=== PATIENT | male | born 1930 | race Caucasian/White ===

== ENCOUNTER 2017-06-10 10:36 | Emergency (ER) | payer MEDICARE, BC ==
[2017-06-10 10:50] VITALS: RESP 20
[2017-06-10 11:02] LABS: BASOPHILS % (AUTO) 1 % (0-3); EOSINOPHILS % (AUTO) 1 % (0-9); HEMATOCRIT 42 % (39-53); MEAN CORPUSCULAR HGB CONC 35.4 gm/dl (32.0-36.0); MEAN CORPUSCULAR VOLUME 92 fL (80-100); MONOCYTES % (AUTO) 15.8 % (0-12); NEUTROPHILS % (AUTO) 69.3 % (37-80)
[2017-06-10 11:15] LABS: CALCIUM 8.5 mg/dl (8.5-10.1); POTASSIUM 4.1 mMol/L (3.5-5.1)
[2017-06-10 11:29] LABS: ALBUMIN 3.5 gm/dl (3.4-5.0); BILIRUBIN,DIRECT 0.3 mg/dl (0.0-0.2)
[2017-06-10] MEDS ORDERED: SODIUM CHLORIDE 0.9% 1000ML 1,000 ML IV ONE (11:29)
[2017-06-10 13:25] VITALS: TEMP 97.6; O2SAT 94
[2017-06-10 13:30] LABS: APPEARANCE,URINE Clear; BILIRUBIN,URINE NEGATIVE (NEGATIVE); COLOR,URINE Yellow; GLUCOSE, URINE (UA) 2+ (NEGATIVE); KETONES,URINE NEGATIVE (NEGATIVE); LEUKOCYTE ESTERASE ,URINE NEGATIVE (NEGATIVE); NITRATE,URINE NEGATIVE (NEGATIVE); OCCULT BLOOD,URINE 2+ (NEG-TRACE); UROBILINOGEN,URINE 0.2 (0.2-1.0 EU)
[2017-06-10] MEDS ORDERED: INSULIN HUMAN REGULAR 100 U/ML SOL SUBCUT SCH (13:45)
[2017-06-10 13:47] LABS: RBC,URINE 0-2 (0-3AV/HPF); WBC,URINE 0-2 (0-5AV/HPF)
[2017-06-10 14:44] VITALS: BP 145/85; PULSE 90
== END 2017-06-10 14:27 | disposition home or self-care (01) | DRG 305 ==
LOC: ED 10:36
DX: I16.9 Hypertensive crisis, unspecified (principal); E11.42 Type 2 diabetes mellitus with diabetic polyneuropathy; E11.65 Type 2 diabetes mellitus with hyperglycemia; J11.1 Influenza due to unidentified influenza virus with other respiratory manifestations; I48.0 Paroxysmal atrial fibrillation; Z79.4 Long term (current) use of insulin; W19.XXXA Unspecified fall, initial encounter; R79.89 Other specified abnormal findings of blood chemistry; I25.2 Old myocardial infarction; N18.9 Chronic kidney disease, unspecified; R50.9 Fever, unspecified; R40.2362 Coma scale, best motor response, obeys commands, at arrival to emergency department; R40.2252 Coma scale, best verbal response, oriented, at arrival to emergency department
CPT/HCPCS: 70450; 70551; 71010; 80048; 80076; 81001; 82550; 82962; 84484; 85025; 87804; 93005; 99285; 99291; J1815; J1817

== ENCOUNTER 2017-06-10 21:45 | Emergency (ER) | payer MEDICARE, BC ==
[2017-06-10 22:13] LABS: BASOPHILS % (AUTO) 1 % (0-3); EOSINOPHILS % (AUTO) 0 % (0-9); HEMATOCRIT 41 % (39-53); MEAN CORPUSCULAR HGB CONC 34.9 gm/dl (32.0-36.0); MEAN CORPUSCULAR VOLUME 92 fL (80-100); MONOCYTES % (AUTO) 15.2 % (0-12); NEUTROPHILS % (AUTO) 75.3 % (37-80)
[2017-06-10] MEDS ORDERED: ACETAMINOPHEN 325 MG PO ONE (22:13)
[2017-06-10] MEDS ORDERED: ACETAMINOPHEN 325 MG ONE (22:14)
[2017-06-10] MEDS ORDERED: METOPROLOL TARTRATE 5 MG/5 ML SOL IV ONE ×4 (22:34→23:15)
[2017-06-10 22:41] LABS: CALCIUM 8.7 mg/dl (8.5-10.1); POTASSIUM 4.3 mMol/L (3.5-5.1)
[2017-06-10] MEDS ORDERED: INSULIN HUMAN REGULAR 100 U/ML SOL IV ONE (22:49)
[2017-06-10 22:55] LABS: APPEARANCE,URINE CLEAR; COLOR,URINE YELLOW; GLUCOSE, URINE (UA) 2+ (NEGATIVE); KETONES,URINE 1+ (NEGATIVE); NITRATE,URINE NEGATIVE (NEGATIVE); OCCULT BLOOD,URINE 3+ (NEG-TRACE)
[2017-06-10] MEDS ORDERED: INSULIN GLARGINE, RECOMBINAN 100 U/ML SOL SC ONE ×3 (22:55→23:10)
[2017-06-10 22:56] LABS: BILIRUBIN,URINE NEGATIVE (NEGATIVE); LEUKOCYTE ESTERASE ,URINE NEGATIVE (NEGATIVE); UROBILINOGEN,URINE NORMAL (0.2-1.0 EU)
[2017-06-10] MEDS ORDERED: INSULIN HUMAN REGULAR 100 U/ML SOL SC ONE (23:01)
[2017-06-10] MEDS ORDERED: INSULIN HUMAN REGULAR 100 U/ML SOL ONE ×2 (23:03→23:06)
[2017-06-10 23:20] LABS: ABG PH 7.5 (7.35-7.45)
[2017-06-10] MEDS: SODIUM CHLORIDE 0.9% FLUSH 10 ML SOL IV PRN (23:25)
[2017-06-10] MEDS ORDERED: DILTIAZEM 5 MG/ML 125 MG in SODIUM CHLORIDE 0.9% 100 ML 100 ML IV SCH (23:30)
[2017-06-10] MEDS ORDERED: OSELTAMIVIR PHOSPHATE 75 MG CAP PO ONE (23:50)
[2017-06-10] MEDS ORDERED: DILTIAZEM 5 MG/ML SOL IV ONE (23:54)
[2017-06-11] MEDS ORDERED: DILTIAZEM 5 MG/ML SOL IV ONE (00:13)
[2017-06-11] MEDS ORDERED: DILTIAZEM 5 MG/ML 125 MG in SODIUM CHLORIDE 0.9% 100 ML 100 ML IV SCH (00:15)
[2017-06-11] MEDS ORDERED: OSELTAMIVIR PHOSPHATE 75 MG CAP PO ONE (00:29)
[2017-06-11] MEDS ORDERED: HEPARIN PREMIX 25,000 U/250 ML SOL IV PRN (00:41)
[2017-06-11] MEDS ORDERED: INSULIN HUMAN REGULAR 100 U/ML SOL IV ONE (01:01)
[2017-06-11] MEDS: SODIUM CHLORIDE 0.9% FLUSH 10 ML SOL IV PRN (01:09)
[2017-06-11 01:20] VITALS: TEMP 100.9; O2SAT 93
[2017-06-11 01:48] VITALS: BP 129/89; PULSE 89; RESP 20
[2017-06-11] MEDS ORDERED: METOPROLOL TARTRATE 25 MG TAB PO SCH (09:00)
[2017-06-11] MEDS ORDERED: CLOPIDOGREL 75 MG TAB PO SCH (09:00)
[2017-06-11] MEDS ORDERED: OSELTAMIVIR PHOSPHATE 30 MG PO SCH (09:00)
[2017-06-11] MEDS ORDERED: LEVOTHYROXINE SODIUM 50 MCG TAB PO SCH (09:00)
[2017-06-11] MEDS ORDERED: LISINOPRIL 5 MG TAB PO SCH (09:00)
[2017-06-11] MEDS ORDERED: DOXYCYCLINE 100 MG TAB PO SCH (09:00)
== END 2017-06-11 01:47 | disposition short-term general hospital (02) | DRG 305 ==
LOC: ED 21:45
DX: I16.9 Hypertensive crisis, unspecified (principal); E11.42 Type 2 diabetes mellitus with diabetic polyneuropathy; E11.65 Type 2 diabetes mellitus with hyperglycemia; J11.1 Influenza due to unidentified influenza virus with other respiratory manifestations; I48.0 Paroxysmal atrial fibrillation; Z79.4 Long term (current) use of insulin; W19.XXXA Unspecified fall, initial encounter; R79.89 Other specified abnormal findings of blood chemistry; I25.10 Atherosclerotic heart disease of native coronary artery without angina pectoris; N18.9 Chronic kidney disease, unspecified; R50.9 Fever, unspecified
CPT/HCPCS: 36600; 71010; 80048; 81001; 82009; 82550; 82803; 82962; 84484; 85025; 85610; 85730; 87040; 87088; 93005; 99291; J1815; J1817

== ENCOUNTER 2017-10-27 06:15 | Emergency (ER) | payer MEDICARE, BC ==
[2017-10-27 06:31] VITALS: TEMP 96.8
[2017-10-27] MEDS ORDERED: PHENYLEPHRINE HCL 0.5% SPR NAS ONE ×2 (08:19→08:24)
[2017-10-27] MEDS ORDERED: CLONIDINE 0.1 MG TAB PO ONE (08:21)
[2017-10-27] MEDS ORDERED: CLONIDINE 0.1 MG TAB ONE (08:24)
[2017-10-27 18:44] VITALS: BP 172/95; PULSE 73; RESP 18; O2SAT 99
== END 2017-10-27 08:56 | disposition home or self-care (01) | DRG 151 ==
LOC: ED 06:15
DX: R04.0 Epistaxis (principal); E11.9 Type 2 diabetes mellitus without complications; I16.0 Hypertensive urgency; Z79.4 Long term (current) use of insulin
CPT/HCPCS: 99283; 99284; A9270-GY